=== PATIENT | female | born 1960 | race Caucasian/White ===

== ENCOUNTER 2018-09-20 19:43 | Observation (INO) ==
[2018-09-20 20:30] LABS: Basophils # (auto) 0.04 K/uL (0-0.2); Basophils % (auto) 0.4 %; Eosinophils # (auto) 0.36 K/uL (0-0.5); Eosinophils % (auto) 3.8 %; Hemoglobin 13.1 g/dL (12.0-16.0); Immature Granulocytes # (auto) 0.02 K/uL (0.00-0.02); Immature Granulocytes % (auto) 0.2 %; Lymphocytes # (auto) 3.16 K/uL (1.2-3.4); Lymphocytes % (auto) 33.7 %; Mean Corpuscular Hgb Conc 33.6 g/dL (32-36); Mean Corpuscular Volume 89.4 fL (80-100); Mean Platelet Volume 10.6 fL (7.4-10.4); Monocytes # (auto) 0.64 K/uL (0.11-0.59); Monocytes % (auto) 6.8 %; Neutrophils # (auto) 5.16 K/uL (1.4-6.5); Neutrophils % (auto) 55.1 %; Platelet Count 235 K/uL (130-400); RDW Coefficient of Variation 13.8 % (11.5-14.5); RDW Standard Deviation 45.4 fL (36.4-46.3); Red Blood Count 4.36 M/uL (4.2-5.4); White Blood Count 9.38 K/uL (4.8-10.8)
[2018-09-20 20:42] LABS: INR 0.9 (0.9-1.1); Partial Thromboplastin Ratio 0.9; Partial Thromboplastin Time 23.7 Seconds (21.0-31.0); Prothrombin Time 9.6 Seconds (9.0-12.0)
[2018-09-20 20:46] LABS: Alanine Aminotransferase 31 U/L (12-78); Albumin Level 3.6 gm/dl (3.4-5.0); Aspartate Aminotransferase 13 U/L (15-37); BUN Creatinine Ratio 29.5 (10-20); Blood Urea Nitrogen 20 mg/dl (7-18); Calcium 9.7 mg/dl (8.5-10.1); Carbon Dioxide 24 mmol/L (21-32); Chloride 109 mmol/L (98-107); Creatinine Clr Calc Pharmacy 109.5 ml/min; Est GFR (African American) 110.4; Est GFR (Non-African American) 95.3; Glucose 105 mg/dl (70-99); Potassium 3.8 mmol/L (3.5-5.1); Sodium 140 mmol/L (136-145)
[2018-09-20 20:51] LABS: Albumin Globulin Ratio 1.1 (0.9-2); Alkaline Phosphatase 67 U/L (45-117); Bilirubin,Total 0.2 mg/dl (0.2-1); Globulin 3.4 gm/dl (2.5-4.0); Troponin I < 0.015 ng/ml (0-0.045)
[2018-09-20] MEDS ORDERED: ASPIRIN CHEW 324 MG PO STA (20:57)
--- NOTE | 2018-09-20 21:17 | XRay Report ---
XR chest 1V portable CLINICAL HISTORY: 58 years-old Female presenting with Pt c/o chest pressure. TECHNIQUE: Portable upright AP view of the chest was obtained. COMPARISON: 08/29/2013. FINDINGS: Atherosclerosis of the aortic arch. Cardiac silhouette top normal in size. Mildly prominent pulmonary vasculature. No focal opacity. No large effusion or pneumothorax. Osseous structures normal. Upper a bdomen normal. IMPRESSION: 1. Questionable volume overload. No other evidence of acute cardiopulmonary disease. Electronically signed by: Christiano Bragg M.D. 09/20/2018 9:16 PM
[2018-09-20 21:23] LABS: D Dimer 240 ug/L FEU (0-500)
[2018-09-20 21:29] LABS: Creatine Kinase MB 1.1 ng/ml (0.5-3.6)
[2018-09-20] MEDS ORDERED: ASPIRIN 81 MG CHEW ONE (21:34)
[2018-09-20] MEDS ORDERED: ACETAMINOPHEN 325 MG TAB PO PRN (23:15)
[2018-09-20] MEDS ORDERED: ASPIRIN 81 MG ECTAB PO PRN (23:15)
[2018-09-20] MEDS ORDERED: ONDANSETRON INJ 2 MG/ML 2 ML VIAL IV PRN (23:15)
[2018-09-20] MEDS ORDERED: NITROGLYCERIN SL 0.4 MG/TAB TAB SL PRN (23:15)
--- NOTE | 2018-09-21 00:46 | History and Physical Report ---
DATE OF ADMISSION: 09/20/2018 CHIEF COMPLAINT: Chest pain. HISTORY OF PRESENT ILLNESS: This is an 58-year-old female with past medical history significant for hyperlipidemia, chronic sinusitis, history of tobacco abuse, presents with chest pain. The patient says this is going on for last 1 week, feels heavy, someone sitting on her chest, and had some tingling feeling in the left fingers. This is a constant pain. Not associated with any activity .Also getting short of breath on exertion when climbing steps or when walking up hill. She says she quit smoking 3 months ago. Denies any cough. No sweating, no dizziness, no fever, no chills, no headache. No blurred visions. No earache. No runny nose, no sore throat, no difficulty swallowing. Appetite is okay, but not sleeping well because of some ongoing stress at home. Denies any nausea, no abdominal pain. Normal bowel and bladder movements. No hematuria, no burning micturition. No hematochezia or melena. No swelling in the legs. No rash. She says she has couple of bruises on lower extremity, possibly bumped something at work. Currently, resting comfortable and hemodynamically stable. She is says that father of heart attack at age of 45 and sister has heart disease at 59. She says she had a stress test about 4 or 5 years ago at [facility] and was okay and she says she cannot run on the treadmill. ALLERGIES: ATORVASTATIN. PAST MEDICAL HISTORY: As mentioned above. PAST SURGICAL HISTORY: Abdominal wall hernia repair, laparoscopically; colonoscopy; total abdominal hysterectomy with removal of tubes; umbilical hernia repair; ultrasound breast biopsy showing fibroadenoma. MEDICATIONS: The patient is on vitamin D 2000 units daily, turmeric 400 mg p.o. daily, Wellbutrin-SR 150 mg p.o. b.i.d., ibuprofen 600 mg as needed. FAMILY HISTORY: Significant for maternal grandmother had cancer. Sister has diabetes. Father of VT at age of 45. Sister has VT at age of 59. Mother had high cholesterol. SOCIAL HISTORY: , former smoker, quit in 06/2018. Smoked 3-4 pack a day for 20 years. Alcohol rarely. No drug use. REVIEW OF SYMPTOMS: As per HPI. Rest of review of systems is negative. PHYSICAL EXAMINATION: GENERAL: The patient is obese, not in acute distress. VITAL SIGNS: Temperature 36.4, pulse 61, respiratory rate 18, blood pressure 148/99, oxygen 97% on room air. HEENT: No pallor, no icterus. Pupils equal, round, and react to light. NECK: No JVD, no neck masses, no carotid bruits. CARDIOVASCULAR: S1, S2 heard, regular rate and rhythm, no murmur, no gallop. RESPIRATORY SYSTEM: Normal AP diameter. No accessory muscle use. No wheezing, no crackles. ABDOMEN: Soft, bowel sounds present. Nontender. No distention. CENTRAL NERVOUS SYSTEM: Cranial nerves II-XII grossly intact. Nonfocal. EXTREMITIES: No edema, no erythema. LABS: WBC 9.3, hemoglobin 13.1, hematocrit 39, platelets at 235. PT 9.6, INR 0.9, APTT 23.7. D-dimer 240. Sodium 140, potassium 3.8, chloride 109, bicarbonate 24, BUN 20, creatinine 0.69, serum glucose 105, calcium 9.7, total bilirubin 0.2, AST 13, ALT 31, alkaline phosphatase 67, total creatinine kinase 85, CK-MB 1.1, troponin I less than 0.015. BNP 42. Chest x-ray questionable volume overload. No other evidence of cardiopulmonary disease. EKG: Sinus bradycardia, rate of 58, nonspecific ST abnormality, no significant change from previous EKG. ASSESSMENT AND PLAN: This is a 58-year-old female who presents with chest pain. 1. Chest pain, going on for last 1 week, pressure-like feeling, constant pain, shortness of breath on exertion, history of tobacco abuse, quit 3 months ago. Family history significant for father of myocardial infarction at age of 45, sister had heart disease at age of 59. Other risk factor is obesity. Initial workup was negative. We will observe in tele floor. Serial cardiac enzymes, echocardiogram and consult cardiology in morning for further recommendation. Close monitor on tele floor. 2. History of tobacco abuse, quit 3 months ago on Wellbutrin. 3. Deep vein thrombosis prophylaxis, sequential compression devices for now. DISPOSITION: Close monitoring in the med/tele. Level 1 full code. MTDD
--- NOTE | 2018-09-21 02:04 | Emergency Department Note ---
Entered by Samantha Mace acting as a scribe for History of Present Illness General Chief complaint: Chest Pain Stated complaint: CHEST PAIN, FAMILY HX Time Seen by Provider: 09/20/18 20:50 Source: patient Mode of arrival: ambulatory Limitations: no limitations History of Present Illness Provider complaint: Chest pain Onset (ago): week(s) 1 Location: chest Severity: moderate Pain Consistency: + constant Maximum Pain Intensity: 6 Quality: + crushing and + other (pinching) Associated symptoms: + denies other symptoms and + shortness of breath; no fever/chills and no nausea/vomiting Patient is a 58 year old female presenting to the ED with chest pain beginning x1 week ago. Pain is moderate in severity and constant since onset. She describes the pain as pinching and she feels like there is someone sitting on her chest. She also includes she is having associated SOB, which is constant but worsens with moderate exertion. Nothing makes pain better or worse. 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 She denies any nausea, vomiting, fevers, chills, or any other complaints or concerns at this time. She lastly notes she is on wellbutrin. Home Medications Home Medications Medication Instructions Recorded Confirmed Type bupropion HCl 150 mg PO DAILY 05/03/18 09/20/18 History cholecalciferol (vitamin D3) 1,000 unit PO DAILY 05/03/18 09/20/18 History [Vitamin D3] turmeric 400 mg PO DAILY 05/03/18 09/20/18 History aspirin [Aspir-Low] 81 mg PO DAILY PRN 09/20/18 09/20/18 History Allergies Allergy/AdvReac Type Severity Reaction Status Date / Time No Known Allergies Allergy Mild Verified 09/20/18 21:43 Past Med/Surg History Medical History Ileus Ventral hernia Social History Preferred Language: Luxembourgish Communication Ability: Effective Suspender Cutter Required: No Beliefs That Will Affect Care: None marital status: Current Living Situation: Spouse current occupational status: employed Feels Safe at Home: Yes Safety Concerns: Feels Safe At This Time Smoking Status: Former smoker Hx Alcohol Use: Yes Hx Substance Use: No Review of Systems See HPI for pertinent positives & negatives. and A total of 10 systems reviewed and were otherwise negative Physical Exam Vital Signs Vital Signs - 24 hr 09/20/18 19:48 09/20/18 21:36 09/20/18 22:46 Temperature 36.4 C L Temperature Source Oral Sepsis Recent Fever Within 48 Hours No Sepsis New/Unexplained Change in Mental Status No Sepsis Action Taken by Nursing No Action Required Pulse Rate 64 Pulse Rate [Apical] 61 64 Respiratory Rate 18 18 18 Respiratory Effort / Characteristics Blood Pressure 148/99 H Blood Pressure [Right Arm] 148/99 H 148/99 H Blood Pressure Mean 115 Blood Pressure Mean [Right Arm] 115 115 Pulse Oximetry 97 97 96 Oxygen Delivery Method Room Air Room Air 09/20/18 23:00 Temperature 36.4 C L Temperature Source Oral Sepsis Recent Fever Within 48 Hours Sepsis New/Unexplained Change in Mental Status Sepsis Action Taken by Nursing Pulse Rate Pulse Rate [Apical] 62 Respiratory Rate 22 Respiratory Effort / Characteristics SOB on Exertion Blood Pressure Blood Pressure [Right Arm] 139/83 Blood Pressure Mean Blood Pressure Mean [Right Arm] 101 Pulse Oximetry 95 Oxygen Delivery Method Room Air GENERAL: Patient is a healthy-appearing well-nourished HEAD: Normocephalic atraumatic EYES: Ocular movements intact pupils equal and react to light OROPHARYNX mucous membranes are moist no exudates present no erythema or edema present NECK: Supple no nuchal rigidity CHEST: Good equal expansion LUNGS: Clear and equal to auscultation CARDIAC: Normal S1 and S2 ABDOMEN: Soft nontender no guarding BACK: No CVA tenderness EXTREMITIES: No pain upon palpation normal muscle strength in all groups no clubbing cyanosis or edema NEURO: Patient is following commands is answering questions appropriately. Alert and oriented x3 Cranial Nerves 2-12 grossly intact Course 2053: The patient was evaluated in room A02, and a complete history and physical examination were performed. 2137: Updated patient on plan for admission. She is agreeable to plan. 2139: Discussed case with Dr. Bridges, who accepts patient for admission. Administered Medications Discontinued Medications Aspirin (Aspirin) 324 mg PO NOW STA Stop: 09/20/18 20:58 Last Admin: 09/20/18 21:33 Dose: 324 mg Documented by: [id number] Aspirin (Aspirin Chew) Confirm Administered Dose [address] Stop: 09/20/18 21:35 Last Admin: 09/20/18 21:38 Dose: Not Given Documented by: [id number] Medical Decision Making Differential Diagnosis Differential diagnosis: Etiologies such as cardiac ischemia, aortic dissection, pulmonary embolism, pneumonia, pneumothorax, musculoskeletal, infections, pericarditis, myocarditis, esophageal rupture, gastrointestinal, as well as others were entertained. Medical Records Attestation: I reviewed the patient's medical records. Home Medications Current Medication List: was personally reviewed by me Laboratory Data Attestation: I reviewed the patient's lab results. Result diagrams: 09/20/18 20:22 09/20/18 20:21 Lab Results 09/20/18 09/20/18 09/20/18 Range/Units 20:21 20:21 20:21 WBC (4.8-10.8) K/uL RBC (4.2-5.4) M/uL Hgb (12.0-16.0) g/dL Hct (37-47) % MCV (80-100) fL MCH (25-34) pg MCHC (32-36) g/dL RDW Std Deviation (36.4-46.3) fL RDW Coeff of Daniel (11.5-14.5) % Plt Count (130-400) K/uL MPV (7.4-10.4) fL Immature Gran % (Auto) % Neut % (Auto) % Lymph % (Auto) % [place] % (Auto) % Eos % (Auto) % Baso % (Auto) % Immature Gran # (Auto) (0.00-0.02) K/uL Neut # (Auto) (1.4-6.5) K/uL Lymph # (Auto) (1.2-3.4) K/uL [place] # (Auto) (0.11-0.59) K/uL Eos # (Auto) (0-0.5) K/uL Baso # (Auto) (0-0.2) K/uL PT 9.6 (9.0-12.0) Seconds INR 0.9 (0.9-1.1) APTT 23.7 (21.0-31.0) Seconds PTT Ratio 0.9 D-Dimer 240 (0-500) ug/L FEU Sodium 140 (136-145) mmol/L Potassium 3.8 (3.5-5.1) mmol/L Chloride 109 H (98-107) mmol/L Carbon Dioxide 24 (21-32) mmol/L Anion Gap 8.0 (3-11) BUN 20 H (7-18) mg/dl Creatinine 0.69 (0.6-1.2) mg/dl Est Cr Clr Drug Dosing 109.5 ml/min Est GFR ( Amer) 110.4 Est GFR (Non-Af Amer) 95.3 BUN/Creatinine Ratio 29.5 H (10-20) Glucose 105 H (70-99) mg/dl Calcium 9.7 (8.5-10.1) mg/dl Total Bilirubin 0.2 (0.2-1) mg/dl AST 13 L (15-37) U/L ALT 31 (12-78) U/L Alkaline Phosphatase 67 (45-117) U/L Total Creatine Kinase (26-192) U/L CK-MB (CK-2) (0.5-3.6) ng/ml CK/CKMB % Calc (0-3.0) Troponin I < 0.015 (0-0.045) ng/ml NT-Pro-B Natriuret Pep (0-900) pg/ml Total Protein 7.0 (6.4-8.2) gm/dl Albumin 3.6 (3.4-5.0) gm/dl Globulin 3.4 (2.5-4.0) gm/dl Albumin/Globulin Ratio 1.1 (0.9-2) 09/20/18 09/20/18 09/20/18 Range/Units 20:21 20:21 20:22 WBC 9.38 (4.8-10.8) K/uL RBC 4.36 (4.2-5.4) M/uL Hgb 13.1 (12.0-16.0) g/dL Hct 39.0 (37-47) % MCV 89.4 (80-100) fL MCH 30.0 (25-34) pg MCHC 33.6 (32-36) g/dL RDW Std Deviation 45.4 (36.4-46.3) fL RDW Coeff of Daniel 13.8 (11.5-14.5) % Plt Count 235 (130-400) K/uL MPV 10.6 H (7.4-10.4) fL Immature Gran % (Auto) 0.2 % Neut % (Auto) 55.1 % Lymph % (Auto) 33.7 % [place] % (Auto) 6.8 % Eos % (Auto) 3.8 % Baso % (Auto) 0.4 % Immature Gran # (Auto) 0.02 (0.00-0.02) K/uL Neut # (Auto) 5.16 (1.4-6.5) K/uL Lymph # (Auto) 3.16 (1.2-3.4) K/uL [place] # (Auto) 0.64 H (0.11-0.59) K/uL Eos # (Auto) 0.36 (0-0.5) K/uL Baso # (Auto) 0.04 (0-0.2) K/uL PT (9.0-12.0) Seconds INR (0.9-1.1) APTT (21.0-31.0) Seconds PTT Ratio D-Dimer (0-500) ug/L FEU Sodium (136-145) mmol/L Potassium (3.5-5.1) mmol/L Chloride (98-107) mmol/L Carbon Dioxide (21-32) mmol/L Anion Gap (3-11) BUN (7-18) mg/dl Creatinine (0.6-1.2) mg/dl Est Cr Clr Drug Dosing ml/min Est GFR ( Amer) Est GFR (Non-Af Amer) BUN/Creatinine Ratio (10-20) Glucose (70-99) mg/dl Calcium (8.5-10.1) mg/dl Total Bilirubin (0.2-1) mg/dl AST (15-37) U/L ALT (12-78) U/L Alkaline Phosphatase (45-117) U/L Total Creatine Kinase 85 (26-192) U/L CK-MB (CK-2) 1.1 (0.5-3.6) ng/ml CK/CKMB % Calc 1.3 (0-3.0) Troponin I (0-0.045) ng/ml NT-Pro-B Natriuret Pep 42 (0-900) pg/ml Total Protein (6.4-8.2) gm/dl Albumin (3.4-5.0) gm/dl Globulin (2.5-4.0) gm/dl Albumin/Globulin Ratio (0.9-2) 09/20/18 Range/Units 23:19 WBC (4.8-10.8) K/uL RBC (4.2-5.4) M/uL Hgb (12.0-16.0) g/dL Hct (37-47) % MCV (80-100) fL MCH (25-34) pg MCHC (32-36) g/dL RDW Std Deviation (36.4-46.3) fL RDW Coeff of Daniel (11.5-14.5) % Plt Count (130-400) K/uL MPV (7.4-10.4) fL Immature Gran % (Auto) % Neut % (Auto) % Lymph % (Auto) % [place] % (Auto) % Eos % (Auto) % Baso % (Auto) % Immature Gran # (Auto) (0.00-0.02) K/uL Neut # (Auto) (1.4-6.5) K/uL Lymph # (Auto) (1.2-3.4) K/uL [place] # (Auto) (0.11-0.59) K/uL Eos # (Auto) (0-0.5) K/uL Baso # (Auto) (0-0.2) K/uL PT (9.0-12.0) Seconds INR (0.9-1.1) APTT (21.0-31.0) Seconds PTT Ratio D-Dimer (0-500) ug/L FEU Sodium (136-145) mmol/L Potassium (3.5-5.1) mmol/L Chloride (98-107) mmol/L Carbon Dioxide (21-32) mmol/L Anion Gap (3-11) BUN (7-18) mg/dl Creatinine (0.6-1.2) mg/dl Est Cr Clr Drug Dosing ml/min Est GFR ( Amer) Est GFR (Non-Af Amer) BUN/Creatinine Ratio (10-20) Glucose (70-99) mg/dl Calcium (8.5-10.1) mg/dl Total Bilirubin (0.2-1) mg/dl AST (15-37) U/L ALT (12-78) U/L Alkaline Phosphatase (45-117) U/L Total Creatine Kinase (26-192) U/L CK-MB (CK-2) (0.5-3.6) ng/ml CK/CKMB % Calc (0-3.0) Troponin I < 0.015 (0-0.045) ng/ml NT-Pro-B Natriuret Pep (0-900) pg/ml Total Protein (6.4-8.2) gm/dl Albumin (3.4-5.0) gm/dl Globulin (2.5-4.0) gm/dl Albumin/Globulin Ratio (0.9-2) Imaging Data Radiologist's Impression: XR chest 1V portable CLINICAL HISTORY: 58 years-old Female presenting with Pt c/o chest pressure. TECHNIQUE: Portable upright AP view of the chest was obtained. COMPARISON: 08/29/2013. FINDINGS: Atherosclerosis of the aortic arch. Cardiac silhouette top normal in size. Mildly prominent pulmonary vasculature. No focal opacity. No large effusion or pneumothorax. Osseous structures normal. Upper abdomen normal. IMPRESSION: 1. Questionable volume overload. No other evidence of acute cardiopulmonary disease. Electronically signed by: Christiano Bragg M.D. 09/20/2018 9:16 PM ECG Data Attestation: I personally reviewed and interpreted this ECG as follows: Indication: chest pain Rate (beats per minute): 58 Rhythm: sinus bradycardia Findings: no PAC, no PVC, no ST depression, no ST elevation and no ectopy Blood Pressure Blood Pressure Findings: Elevated blood pressure Blood Pressure Disposition: elevated BP felt to be situational MDM Narrative This is a 58-year-old female who presents emergency department complaining of chest pain that has been ongoing for the past week. The patient reports pain anytime she exerts herself but goes away with rest. The patient recently gave up smoking. The patient has no evidence of pneumonia on chest x-ray. She has a normal d-dimer. Due to the nature of the patient's symptoms I did discuss the case with the hospitalist service who agreed to admit the patient. Patient was in agreement with the treatment plan. Impression & Plan Chest pain Discharge Plan Visit Data *Final* Discharge Date/Time: 09/20/18 22:56 Chief Complaint: Chest Pain Stated Complaint: CHEST PAIN, FAMILY HX ED Provider: Georgi,Tim Discharge Problem: Chest pain Patient Disposition: Admitted As Inpatient Discharge Instructions Interventions: ED Discharge Assessment Last Done: 09/20/18 22:56 Discharge Problem: Chest pain Qualifiers: Chest pain type: unspecified Qualified Code(s): R07.9 - Chest pain, unspecified The scribe's documentation has been prepared under my direction and personally reviewed by me in its entirety. I confirm that the note above accurately reflects all work, treatment, procedures, and medical decision making performed by me.
[2018-09-21 06:55] LABS: Basophils # (auto) 0.03 K/uL (0-0.2); Basophils % (auto) 0.4 %; Eosinophils # (auto) 0.33 K/uL (0-0.5); Eosinophils % (auto) 4.6 %; Hematocrit (blood only) 39.1 % (37-47); Hemoglobin 13.1 g/dL (12.0-16.0); Immature Granulocytes # (auto) 0.01 K/uL (0.00-0.02); Immature Granulocytes % (auto) 0.1 %; Lymphocytes # (auto) 2.13 K/uL (1.2-3.4); Lymphocytes % (auto) 29.5 %; Mean Corpuscular Hgb Conc 33.5 g/dL (32-36); Mean Corpuscular Volume 90.5 fL (80-100); Mean Platelet Volume 10.5 fL (7.4-10.4); Monocytes # (auto) 0.67 K/uL (0.11-0.59); Monocytes % (auto) 9.3 %; Neutrophils # (auto) 4.05 K/uL (1.4-6.5); Neutrophils % (auto) 56.1 %; Platelet Count 211 K/uL (130-400); RDW Coefficient of Variation 13.8 % (11.5-14.5); RDW Standard Deviation 46.2 fL (36.4-46.3); Red Blood Count 4.32 M/uL (4.2-5.4); White Blood Count 7.22 K/uL (4.8-10.8)
[2018-09-21 07:12] LABS: BUN Creatinine Ratio 20.9 (10-20); Blood Urea Nitrogen 16 mg/dl (7-18); Calcium 9.2 mg/dl (8.5-10.1); Carbon Dioxide 28 mmol/L (21-32); Chloride 109 mmol/L (98-107); Creatinine Clr Calc Pharmacy 101.2 ml/min; Est GFR (African American) 102.8; Est GFR (Non-African American) 88.7; Glucose 101 mg/dl (70-99); Magnesium 2.3 mg/dl (1.8-2.4); Sodium 143 mmol/L (136-145)
[2018-09-21 07:15] LABS: Chol HDL Ratio 5; Cholesterol 234 mg/dl (0-200); HDL Cholesterol 52 mg/dl; LDL Cholesterol Calculated 136 mg/dl; Triglycerides 230 mg/dl (0-150); VLDL Cholesterol 46 mg/dl
[2018-09-21 07:17] LABS: Troponin I < 0.015 ng/ml (0-0.045)
[2018-09-21] MEDS: BuPROPion SR 150 MG TABCR PO SCH (09:16)
[2018-09-21] MEDS: CHOLECALCIFEROL 1,000 UNITS TAB PO SCH (09:17)
--- NOTE | 2018-09-21 10:36 | Cardiology Consultation ---
Date of Consultation September 21, 2018 Assessment & Plan (1) Chest pain: Constant chest discomfort with atypical features and without evidence of acute coronary syndrome at this time. ECG unchanged when compared to prior tracings dating back to 2007. Resting 2D transthoracic echocardiogram without regional wall motion of normality. No dysrhythmias on telemetry. Recommend dobutamine stress echocardiography for further evaluation/risk stratification. (2) Abnormal ECG: (3) Dyslipidemia, goal LDL below 100: Reported intolerance to atorvastatin related to lower extremity discomfort. Recommend low-dose rosuvastatin 5 mg daily. History of Present Illness Reason for Consultation: Chest pain Requesting Physician: Dr. Ion Harris Attending Physician: Ion Harris MD History of Present Illness 58-year-old female presents the emergency department with 7 days of constant chest pressure and heaviness. Patient reports symptoms began more than 1 week ago with associated indigestion. Discomfort is not exertional. There is no po sitional component. She is able to sleep through the night however the pain is described as 4-5/10 in severity. Reports dyspnea on exertion primarily when walking on an incline. Reports constant diffuse joint pain including lower extremity discomfort. Statin discontinued in the past due to possible myalgia. Notes chronic neck discomfort with radiculopathy. Recently quit smoking approximately 3 months ago. Denies palpitations, lightheadedness, dizziness, syncope, near syncope. No orthopnea, PND, lower extremity edema, or claudication. Allergies Allergy/AdvReac Type Severity Reaction Status Date / Time No Known Allergies Allergy Mild Verified 09/20/18 21:43 Home Medications Home Medications Medication Instructions Recorded Confirmed Type bupropion HCl 150 mg PO DAILY 05/03/18 09/20/18 History cholecalciferol (vitamin D3) 1,000 unit PO DAILY 05/03/18 09/20/18 History [Vitamin D3] turmeric 400 mg PO DAILY 05/03/18 09/20/18 History aspirin [Aspir-Low] 81 mg PO DAILY PRN 09/20/18 09/20/18 History Patient History Medical History Ileus Ventral hernia Social History Preferred Language: Slovak Communication Ability: Effective Manager Of School Required: No Beliefs That Will Affect Care: None marital status: Current Living Situation: Spouse current occupational status: employed Feels Safe at Home: Yes Safety Concerns: Feels Safe At This Time Smoking Status: Former smoker Hx Alcohol Use: Yes Hx Substance Use: No Review of Systems Pertinent positives noted per HPI. Conference of 10 system review otherwise negative. Physical Exam Vital Signs (Past 24 Hours): Last Vital Signs Temp 36.6 C 09/21/18 07:36 Pulse 81 09/21/18 07:36 Resp 16 09/21/18 07:36 BP 113/77 09/21/18 07:36 Pulse Ox 99 09/21/18 07:36 Physical Exam: General: NAD, AAO x3, well nourished. Obese. HEENT: Normocephalic. Atraumatic. Conjunctiva pink, no scleral icterus. Neck: No carotid bruits, the carotid upstrokes are brisk. No JVD. No HJR Heart: Regular n ormal S-1 and S-2 no S-3 or S-4 gallop. No murmurs or rub appreciated. PMI is not displaced. No RV heave. Lungs: Clear bilateral without rales , rhonchi, or wheeze. Abdomen: Normal bowel sounds. Soft. Nontender. No masses or organomegaly. No abdominal bruits. Extremities: No clubbing, cyanosis, or edema. Pulses: radial=2/4, Dorsalis pedis =2/4, posterior tibial=2/4. Neuro: Cranial nerves grossly intact. No focal motor deficit. (1) Chest pain Chest pain type: other chest pain Qualified Code(s): R07.89 - Other chest pain; R07.8 - Other chest pain
[2018-09-21] MEDS: PANTOprazole 40 MG TAB PO SCH (12:05)
[2018-09-21] MEDS: ROSUVASTATIN CALCIUM 5 MG TAB PO SCH (12:06)
[2018-09-21] MEDS ORDERED: ACETAMINOPHEN 325 MG TAB PO STA (13:47)
--- NOTE | 2018-09-21 13:47 | Hospitalist Progress Note ---
Date of Service September 21, 2018 Assessment & Plan (1) Chest pain: 58-year-old female who presents with chest pain Chest pain -"going on for last 1 week, pressure-like feeling, constant pain, shortness of breath on exertion, history of tobacco abuse, quit 3 months ago. Family history significant for father of myocardial infarction at age of 45, sister had heart disease at age of 59. Other risk factor is obesity." as per the admitting medical doctor -admission Chest X ray: Atherosclerosis of the aortic arch. Cardiac silhouette top normal in size. Mildly prominent pulmonary vasculature. No focal opacity. No large effusion or pneumothorax. Osseous structures normal. Upper abdomen normal. -as per cardiology evaluation, the Constant chest discomfort with atypical features and without evidence of acute coronary syndrome at this time. ECG unchanged when compared to prior tracings dating back to 2007. Resting 2D transthoracic echocardiogram without regional wall motion of normality. No dysrhythmias on telemetry -cardiology service recommends recommend dobutamine stress echocardiography for further evaluation/risk stratification, however this will not be done until 09/23/18Sunday -will continue to monitor symptoms on telemetry for now -will start trial of pantoprazole and gabapentin History of tobacco abuse -quit 3 months ago History of Depression -continue home dose Wellbutrin. Deep vein thrombosis prophylaxis, sequential compression devices for now Subjective Patient reports that she has been having chest pressure x 1 week. no acute distress. chest pressure appears to come and go. Right now patient reports mild headache. denies shortness of breath currently, denies abdominal pain, denies vomiting Physical Exam Vital Signs (Past 24 Hours): Last Vital Signs Temp 36.8 C 09/21/18 12:03 Pulse 63 09/21/18 12:03 Resp 18 09/21/18 12:03 BP 132/86 09/21/18 12:03 Pulse Ox 95 09/21/18 12:03 Constitutional: WD/WN, vitals as above Eyes: PERRL, conjunctivae normal, anicteric sclerae EOM intact bilaterally ENMT: external ear and nose normal, oropharynx normal Neck: trachea midline, no thyromegaly normal visual inspection Respiratory: normal respiratory effort, lungs clear to auscultation Cardiovascular: RRR, no murmur, no edema Gastrointestinal (Abdomen): normal bowel sounds, soft, nontender, no hepatosplenomegaly Musculoskeletal: no cyanosis or clubbing, extremities motor strength 5/5 Head/Neck/Chest: normocephalic and head atraumatic Neurologic: PERRL, EOMI, accommodation nl, no face palsy, no dysarthria CN's II-XI intact bilaterally Psychiatric: A+Ox3, euthymic affect (1) Chest pain Chest pain type: other chest pain Qualified Code(s): R07.89 - Other chest pain; R07.8 - Other chest pain
[2018-09-21] MEDS: GABAPENTIN 100 MG CAP PO SCH ×2 (14:23→19:59)
[2018-09-22] MEDS: PANTOprazole 40 MG TAB PO SCH (08:33)
[2018-09-22] MEDS: BuPROPion SR 150 MG TABCR PO SCH (08:34)
[2018-09-22] MEDS: GABAPENTIN 100 MG CAP PO SCH ×3 (08:34→20:44)
[2018-09-22] MEDS: CHOLECALCIFEROL 1,000 UNITS TAB PO SCH (08:34)
[2018-09-22] MEDS: ROSUVASTATIN CALCIUM 5 MG TAB PO SCH (08:34)
--- NOTE | 2018-09-22 11:06 | Hospitalist Progress Note ---
Date of Service September 22, 2018 Assessment & Plan (1) Chest pain: 58-year-old female who presents with chest pain Chest pain -"going on for last 1 week, pressure-like feeling, constant pain, shortness of breath on exertion, history of tobacco abuse, quit 3 months ago. Family history significant for father of myocardial infarction at age of 45, sister had heart disease at age of 59. Other risk factor is obesity." as per the admitting medical doctor -admission Chest X ray: Atherosclerosis of the aortic arch. Cardiac silhouette top normal in size. Mildly prominent pulmonary vasculature. No focal opacity. No large effusion or pneumothorax. Osseous structures normal. Upper abdomen normal. -as per cardiology evaluation, the Constant chest discomfort with atypical features and without evidence of acute coronary syndrome at this time. ECG unchanged when compared to prior tracings dating back to 2007. Resting 2D transthoracic echocardiogram without regional wall motion of normality. No dysrhythmias on telemetry -cardiology service recommends recommend dobutamine stress echocardiography for further evaluation/risk stratification, however this will not be done until 09/23/18Sunday -continue to monitor symptoms on telemetry for now -continue trial of pantoprazole and gabapentin History of tobacco abuse -quit 3 months ago History of Depression -continue home dose Wellbutrin. Deep vein thrombosis prophylaxis, sequential compression devices for now Subjective Patient reports that her pain is 1 out of 10 today when she woke up this morning which is improved. Patient reports that she spoke with cardiology doctor earlier and the plan remains for stress test on Sunday09/23/18. Patient denies abdominal pain or shortness of breath. no vomiting. no lightheadedness Physical Exam Vital Signs (Past 24 Hours): Last Vital Signs Temp 36.8 C 09/22/18 08:03 Pulse 65 09/22/18 08:03 Resp 16 09/22/18 08:03 BP 128/81 09/22/18 08:03 Pulse Ox 94 09/22/18 08:03 Constitutional: WD/WN, vitals as above Eyes: PERRL, conjunctivae normal, anicteric sclerae EOM intact bilaterally ENMT: external ear and nose normal, oropharynx normal Neck: trachea midline, no thyromegaly normal visual inspection Respiratory: normal respiratory effort, lungs clear to auscultation Cardiovascular: RRR, no murmur, no edema Gastrointestinal (Abdomen): normal bowel sounds, soft, nontender, no hepatosplenomegaly Musculoskeletal: no cyanosis or clubbing, extremities motor strength 5/5 Head/Neck/Chest: normocephalic and head atraumatic Neurologic: PERRL, EOMI, accommodation nl, no face palsy, no dysarthria CN's II-XI intact bilaterally Psychiatric: A+Ox3, euthymic affect (1) Chest pain Chest pain type: other chest pain Qualified Code(s): R07.89 - Other chest pain; R07.8 - Other chest pain
--- NOTE | 2018-09-22 11:18 | Cardiology Progress Note ---
Date of Service September 22, 2018 Assessment & Plan (1) Chest pain: No evidence of acute coronary syndrome. Dobutamine stress echocardiography will be performed in a.m. N.p.o. except for medications after midnight. (2) Abnormal ECG: (3) Dyslipidemia, goal LDL below 100: Reported intolerance to atorvastatin related to lower extremity discomfort. Rosuvastatin 5 mg daily added 09/21/18. Subjective Patient seen and examined at bedside. Chest discomfort has resolved. Feeling well from a cardiovascular standpoint. No dysrhythmias on telemetry. Denies shortness of breath, palpitations, orthopnea, PND, or lower extremity edema. Offers no complaints at this time. Review of Systems All systems reviewed & are unremarkable except as noted in HPI & below Physical Exam Vital Signs (Past 24 Hours): Last Vital Signs Temp 36.8 C 09/22/18 08:03 Pulse 65 09/22/18 08:03 Resp 16 09/22/18 08:03 BP 128/81 09/22/18 08:03 Pulse Ox 94 09/22/18 08:03 Physical Exam: General: NAD, AAO x3, well nourished. HEENT: Normocephalic. Atraumatic. Conjunctiva pink, no scleral icterus. Neck: No carotid bruits, the carotid upstrokes are brisk. No JVD. No HJR Heart: Regular normal S-1 and S-2 no S-3 or S-4 gallop. No murmurs or rub appreciated. PMI is not displaced. No RV heave. Lungs: Clear bilateral without rales , rhonchi, or wheeze. Abdomen: Normal bowel sounds. Soft. Nontender. No masses or organomegaly. No abdominal bruits. Extremities: No clubbing, cyanosis, or edema. Pulses: radial=2/4, Dorsalis pedis =2/4, posterior tibial=2/4. Neuro: Cranial nerves grossly intact. No focal motor deficit. (1) Chest pain Chest pain type: other chest pain Qualified Code(s): R07.89 - Other chest pain; R07.8 - Other chest pain
[2018-09-23] MEDS: PANTOprazole 40 MG TAB PO SCH (07:42)
[2018-09-23] MEDS ORDERED: DOBUTamine HCL 12.5 MG/ML 20 ML VIAL IV ONE (08:01)
[2018-09-23] MEDS ORDERED: METOPROLOL TARTRATE 1 MG/ML VIAL IV ONE (08:01)
[2018-09-23] MEDS ORDERED: ATROPINE SULFATE 0.1 MG/ML 10ML SYR IV ONE (08:01)
[2018-09-23] MEDS ORDERED: PERFLUTREN LIPID MICROSPHERE (DEFINITY) IV ONE (09:11)
[2018-09-23] MEDS: ROSUVASTATIN CALCIUM 5 MG TAB PO SCH (10:56)
[2018-09-23] MEDS: CHOLECALCIFEROL 1,000 UNITS TAB PO SCH (10:56)
[2018-09-23] MEDS: BuPROPion SR 150 MG TABCR PO SCH (10:56)
[2018-09-23] MEDS: GABAPENTIN 100 MG CAP PO SCH ×2 (10:57→13:47)
--- NOTE | 2018-09-23 13:18 | Hospitalist Progress Note ---
Date of Service September 23, 2018 Assessment & Plan (1) Chest pain: 58-year-old female who presents with chest pain Chest pain (atypical) -"going on for last 1 week, pressure-like feeling, constant pain, shortness of breath on exertion, history of tobacco abuse, quit 3 months ago. Family histo ry significant for father of myocardial infarction at age of 45, sister had heart disease at age of 59. Other risk factor is obesity." as per the admitting medical doctor -admission Chest X ray: Atherosclerosis of the aortic arch. Cardiac silhouette top normal in size. Mildly prominent pulmonary vasculature. No focal opacity. No large effusion or pneumothorax. Osseous structures normal. Upper abdomen normal. -as per cardiology evaluation, the Constant chest discomfort with atypical features and without evidence of acute coronary syndrome at this time. ECG unchanged when compared to prior tracings dating back to 2007. Resting 2D transthoracic echocardiogram without regional wall motion of normality. No dysrhythmias on telemetry -cardiology service recommended dobutamine stress echocardiography for further evaluation/risk stratification on Sunday09/21/18, however this test was not available until 09/23/18Sunday, hospitalist medicine started patient on trial of pantoprazole and gabapentin -09/22/18 Patient describes pain as improved as only 1 out of 10 -09/23/18 Patient reports that when she woke up from sleep today, that there was no chest discomfort. She completed dobutamine stress echocardiogram and returned with no pain. Dobutamine stress echocardiogram results as normal stress te -continue pantoprazole and gabapentin on discharge and also continued crestor 5 mg daily History of tobacco abuse -quit 3 months ago, encouraged to maintain smoking cessation -give prescription of crestor 5 mg to lower cardiovascular risks in the future History of Depression -continue home dose Wellbutrin. Deep vein thrombosis prophylaxis, sequential compression devices for now Discharge Diagnosis: Chest pain (Coronary artery disease ruled out), History of Tobacco use, History of Depression Discharge Instructions: discharge to home and follow up with primary medical doctor 09/26/2018 11:00 AM Provider Toni Garcia MD Department [facility] Subjective Patient reports that when she woke up from sleep today, that there was no chest discomfort. She completed dobutamine stress echocardiogram and returned with no pain. Dobutamine stress echocardiogram results as normal stress test Patient denies shortness of breath. no abdominal pain. no lightheadedness. no vomiting. Physical Exam Vital Signs (Past 24 Hours): Last Vital Signs Temp 36.6 C 09/23/18 11:21 Pulse 61 09/23/18 11:21 Resp 16 09/23/18 11:21 BP 107/71 09/23/18 11:21 Pulse Ox 94 09/23/18 11:21 Constitutional: WD/WN, vitals as above Eyes: PERRL, conjunctivae normal, anicteric sclerae EOM intact bilaterally ENMT: external ear and nose normal, oropharynx normal Neck: trachea midline, no thyromegaly normal visual inspection Respiratory: normal respiratory effort, lungs clear to auscultation Cardiovascular: RRR, no murmur, no edema Gastrointestinal (Abdomen): normal bowel sounds, soft, nontender, no hepatosplenomegaly Musculoskeletal: no cyanosis or clubbing, extremities motor strength 5/5 Head/Neck/Chest: normocephalic and head atraumatic Neurologic: PERRL, EOMI, accommodation nl, no face palsy, no dysarthria CN's II-XI intact bilaterally Psychiatric: A+Ox3, euthymic affect (1) Chest pain Chest pain type: other chest pain Qualified Code(s): R07.89 - Other chest pain; R07.8 - Other chest pain
--- NOTE | 2018-09-23 13:31 | Discharge Summary ---
Date of Service September 23, 2018 Admission HPI Per Admitting Provider CHIEF COMPLAINT: Chest pain. HISTORY OF PRESENT ILLNESS: This is an 58-year-old female with past medical history significant for hyperlipidemia, chronic sinusitis, history of tobacco abuse, presents with chest pain. The patient says this is going on for last 1 week, feels heavy, someone sitting on her chest, and had some tingling feeling in the left fingers. This is a constant pain. Not associated with any activity .Also getting short of breath on exertion when climbing steps or when walking up hill. She says she quit smoking 3 months ago. Denies any cough. No sweating, no dizziness, no fever, no chills, no headache. No blurred visions. No earache. No runny nose, no sore throat, no difficulty swallowing. Appetite is okay, but not sleeping well because of some ongoing stress at home. Denies any nausea, no abdominal pain. Normal bowel and bladder movements. No hematuria, no burning micturition. No hematochezia or melena. No swelling in the legs. No rash. She says she has couple of bruises on lower extremity, possibly bumped something at work. Currently, resting comfortable and hemodynamically stable. She is says that father of heart attack at age of 45 and sister has heart disease at 59. She says she [facility] and was okay and she says she cannot run on the treadmill. ALLERGIES: ATORVASTATIN. PAST MEDICAL HISTORY: As mentioned above. PAST SURGICAL HISTORY: Abdominal wall hernia repair, laparoscopically; colonoscopy; total abdominal hysterectomy with removal of tubes; umbilical hernia repair; ultrasound breast biopsy showing fibroadenoma. MEDICATIONS: The patient is on vitamin D 2000 units daily, turmeric 400 mg p.o. daily, Wellbutrin-SR 150 mg p.o. b.i.d., ibuprofen 600 mg as needed. FAMILY HISTORY: Significant for maternal grandmother had cancer. Sister has diabetes. Father of VT at age of 45. Sister has VT at age of 59. Mother had high cholesterol. SOCIAL HISTORY: , former smoker, quit in 06/2018. Smoked 3-4 pack a day for 20 years. Alcohol rarely. No drug use. REVIEW OF SYMPTOMS: As per HPI. Rest of review of systems is negative. Admission Exam Per Admitting Provider PHYSICAL EXAMINATION: GENERAL: The patient is obese, not in acute distress. VITAL SIGNS: Temperature 36.4, pulse 61, respiratory rate 18, blood pressure 148/99, oxygen 97% on room air. HEENT: No pallor, no icterus. Pupils equal, round, and react to light. NECK: No JVD, no neck masses, no carotid bruits. CARDIOVASCULAR: S1, S2 heard, regular rate and rhythm, no murmur, no gallop. RESPIRATORY SYSTEM: Normal AP diameter. No accessory muscle use. No wheezing, no crackles. ABDOMEN: Soft, bowel sounds present. Nontender. No distention. CENTRAL NERVOUS SYSTEM: Cranial nerves II-XII grossly intact. Nonfocal. EXTREMITIES: No edema, no erythema. Principal Diagnosis Chest pain (Coronary artery disease ruled out), History of Tobacco use, History of Depression Discharge Exam Constitutional WD/WN, vitals as above Eyes PERRL, conjunctivae normal, anicteric sclerae EOM intact bilaterally ENMT external ear and nose normal, oropharynx normal Neck trachea midline, no thyromegaly normal visual inspection Respiratory normal respiratory effort, lungs clear to auscultation Cardiovascular RRR, no murmur, no edema Gastrointestinal (Abdomen) normal bowel sounds, soft, nontender, no hepatosplenomegaly Musculoskeletal no cyanosis or clubbing, extremities motor strength 5/5 Head/Neck/Chest: normocephalic and head atraumatic Neurologic PERRL, EOMI, accommodation nl, no face palsy, no dysarthria CN's II-XI intact bilaterally Psychiatric A+Ox3, euthymic affect Discharge Data Allergies Allergy/AdvReac Type Severity Reaction Status Date / Time No Known Allergies Allergy Mild Verified 09/20/18 21:43 Consultations 09/20/18 21:53 ED Decision to Admit Stat 09/21/18 08:00 Consult Cardiology Routine Hospital Course (1) Chest pain: 58-year-old female who presents with chest pain Chest pain (atypical) -"going on for last 1 week, pressure-like feeling, constant pain, shortness of breath on exertion, history of tobacco abuse, quit 3 months ago. Family history significant for father of myocardial infarction at age of 45, sister had heart disease at age of 59. Other risk factor is obesity." as per the admitting medical doctor -admission Chest X ray: Atherosclerosis of the aortic arch. Cardiac silhouette top normal in size. Mildly prominent pulmonary vasculature. No focal opacity. No large effusion or pneumothorax. Osseous structures normal. Upper abdomen normal. -as per cardiology evaluation, the Constant chest discomfort with atypical features and without evidence of acute coronary syndrome at this time. ECG unchanged when compared to prior tracings dating back to 2007. Resting 2D transthoracic echocardiogram without regional wall motion of normality. No dysrhythmias on telemetry -cardiology service recommended dobutamine stress echocardiography for further evaluation/risk stratification on Sunday09/21/18, however this test was not available until 09/23/18Sunday, hospitalist medicine started patient on trial of pantoprazole and gabapentin -09/22/18 Patient describes pain as improved as only 1 out of 10 -09/23/18 Patient reports that when she woke up from sleep today, that there was no chest discomfort. She completed dobutamine stress echocardiogram and returned with no pain. Dobutamine stress echocardiogram results as normal stress te -continue pantoprazole and gabapentin on discharge and also continued crestor 5 mg daily History of tobacco abuse -quit 3 months ago, encouraged to maintain smoking cessation -give prescription of crestor 5 mg to lower cardiovascular risks in the future History of Depression -continue home dose Wellbutrin. Deep vein thrombosis prophylaxis, sequential compression devices for now Discharge Diagnosis: Chest pain (Coronary artery disease ruled out), History of Tobacco use, History of Depression Discharge Instructions: discharge to home and follow up with primary medical doctor 09/26/2018 11:00 AM Provider Toni Garcia MD Department [facility] Total Time Total Time Spent Total Time Spent (In Minutes): 40 minutes Total Time Includes: Examination of the Patient, Discharge Planning and Medication Reconciliation Discharge Plan Discharge Items Patient Disposition: Home - Self-Care Reason For Visit: CHEST PAIN, Discharge Diagnosis: chest pain, History of Tobacco use, History of Depression Condition: Good Discharge Goals: Decrease discomfort Activity: Resume your previous activity Non-emergency contact: Primary Care Provider Call non-emergency contact if: you have any medication questions Follow-up/Referrals: Toni Garcia MD [Primary Care Provider] - Diet: Low Fat Addtl Provider Instructions: Discharge Instructions: discharge to home and follow up with primary medical doctor 09/26/2018 11:00 AM Provider Toni [place] Radha, MD Department [facility] Lena normal dobutamine stress test Prescriptions: New rosuvastatin 5 mg tablet 5 mg PO QAM 30 Days Qty: 30 RF: 0 pantoprazole 40 mg Tablet,Delayed Release (Dr/Ec) 40 mg PO QAM 30 Days Qty: 30 RF: 0 gabapentin 100 mg Capsule 100 mg PO TID 30 Days Qty: 90 RF: 0 Continued bupropion HCl 150 mg tablet sustained-release 12 hr 150 mg PO DAILY RF: 0 cholecalciferol (vitamin D3) [Vitamin D3] 1,000 unit Capsule 1,000 unit PO DAILY RF: 0 turmeric 400 mg Capsule 400 mg PO DAILY RF: 0 aspirin [Aspir-Low] 81 mg Tablet,Delayed Release (Dr/Ec) 81 mg PO DAILY PRN (Reason: Pain) RF: 0 Stand-Alone Forms: Call Back Authorization, [facility] Discharge Orders: Discharge Order (Routine); Ordered 09/23/18 Ordered By: Ion Harris Admission Data Admit Date/Time: 09/20/18 22:25 Attending Provider: Ion Harris Admit Provider: Quintin Bridges Primary Care Provider: Toni Garcia Other Providers: Quintin Bridges ; Kumar Newell Service: Telemetry
== END 2018-09-23 14:22 | disposition home or self-care (01) ==
LOC: ED 19:43 → 2N 19:43
DX: Z87.891 Personal history of nicotine dependence; Z79.899 Other long term (current) drug therapy; R07.9 Chest pain, unspecified; R06.02 Shortness of breath; F32.9 Major depressive disorder, single episode, unspecified; E78.5 Hyperlipidemia, unspecified; Z82.49 Family history of ischemic heart disease and other diseases of the circulatory system; R94.31 Abnormal electrocardiogram [ECG] [EKG]; Z88.9 Allergy status to unspecified drugs, medicaments and biological substances